=== PATIENT | female | born 1980 | race Asian ===

== ENCOUNTER 2017-10-13 06:15 | Inpatient (IN) | payer OTHER ==
[~2017-10-13 06:15] MED LIST: CITRIC ACID/SODIUM CITRATE 30 ML UNIT-DOSE CUP PO ONE; ELECTROLYTE-148 SOLN 500 ML IV ONE
[2017-10-13] MEDS ORDERED: ELECTROLYTE-148 SOLN 500 ML IV ONE (06:45)
[2017-10-13 07:19] VITALS: BMI 29.7
[2017-10-13] MEDS ORDERED: TUBERCULIN PPD 5 TU/0.1ML SYRINGE (IN PATIENT USE ONLY) ID ONE (08:00)
[2017-10-13] MEDS ORDERED: morphine SULFATE/Preservative Free 0.5 MG/ML (1cc Syringe) ONE (08:13)
[2017-10-13] MEDS ORDERED: PHENYLEPHRINE HCL 10 MG/1 ML SINGLE DOSE VIAL ONE (08:13)
[2017-10-13] MEDS ORDERED: BUPIVACAINE 0.75% IN DEXTROSE/PF 2ML AMPULE NR ONE (08:15)
[2017-10-13] MEDS ORDERED: CLINDAMYCIN PHOSPHATE 600 MG/4 ML VIAL ONE (08:39)
[2017-10-13] MEDS ORDERED: ACETAMINOPHEN 325 MG TABLET (FP) PO PRN (08:46)
[2017-10-13] MEDS ORDERED: IBUPROFEN 600 MG TABLET (FP) PO PRN ×2 (08:46→09:46)
[2017-10-13] MEDS ORDERED: ONDANSETRON 4 MG/2 ML VIAL IVPUSH PRN (08:46)
[2017-10-13] MEDS ORDERED: ePHEDrine SULFATE 50 MG/1 ML AMPULE ONE (09:17)
[2017-10-13 09:31] LABS: ARTERIAL BLOOD GAS PCO2 62.5 mmHg (35-45); ARTERIAL BLOOD GAS PO2 13.1 mmHg (80-100); ARTERIAL BLOOD GAS pH 7.27 (7.35-7.45)
[2017-10-13 09:32] LABS: ARTERIAL BLD GAS O2 SATURATION 14.9 % (90-98.9); ARTERIAL BLOOD GAS BASE EXCESS -0.9 meq/l (-2-2); VENOUS PH 7.32 (7.32-7.42)
[2017-10-13] MEDS ORDERED: OXYTOCIN 20 UNITS in 0.9% NS 20 UNIT/1,000 ML INFUS.BAG IV ONE (09:32)
[2017-10-13 09:33] LABS: VENOUS PC02 47.3 mmHg (38-52); VENOUS PO2 23.9 mmHg (28-48)
[2017-10-13] MEDS: OXYTOCIN 20 UNITS in 0.9% NS 20 UNIT/1,000 ML INFUS.BAG IV SCH (09:35)
[2017-10-13] MEDS ORDERED: SIMETHICONE 80 MG TAB.CHEW (FP) PO PRN (09:46)
[2017-10-13] MEDS ORDERED: IBUPROFEN 800 MG/8 ML IJ IVPB PRN (09:46)
[2017-10-13] MEDS ORDERED: SENNOSIDES/DOCUSATE COMBO (SENNA PLUS) TABLET (UD) PO PRN (09:46)
[2017-10-13] MEDS ORDERED: METHYLERGONOVINE MALEATE 0.2 MG/1 ML AMP IM PRN (09:46)
[2017-10-13] MEDS ORDERED: oxyCODONE HCL 5 MG TABLET PO PRN ×2 (09:46)
--- NOTE | 2017-10-13 09:58 | HP ---
Admitting History and Physical - Admission History of Present Illness: 37 yo @ 37 1/7 wks by first trimester ultrasound, EDC 11/07/2017 complicated by: 1. Placenta previa - noted at Anatomy scan, confirmed at 35 weeks. No bleeding or pain 2. Prepregnancy thrombocytopenia - platelet 10/11 at [facility] - 188 3. AMA - favorable cell free DNA 4. Anemia - s/p iron infusion, sees Dr. Rey Jacobsen 5. Varicella non-immune 6. Multiple fibroids, largest 6 cm at first trimester scan - no pain or complaints in Patient presents for scheduled primary delivery at 37 1/7 weeks, as per ACOG guidelines (recommended scheduled CD at 36 0/7 to 37 6/7 wks). She denies complaints. She reports movement, denies leakage of fluid or vaginal bleeding. She denies contractions. History Source: Patient Limitations to Obtaining History: No Limitations - Past Medical History Cardiovascular: No: HTN Pulmonary: No: Asthma Gastrointestinal: No: GERD ...: 1 ...Para: 0 Heme/Onc: Yes: Anemia, Thrombocytopenia - Past Surgical History Additional Past Surgical History: Ear surgery - Smoking History Smoking history: Never smoked Have you smoked in the past 12 months: No - Alcohol/Substance Use Hx Alcohol Use: No History of Substance Use: denies: None - Social History History of Recent Travel: No Home Medications - Allergies Allergies/Adverse Reactions: Allergies Allergy/AdvReac Type Severity Reaction Status Date / Time amoxicillin Allergy Intermediate Rash Verified 10/13/17 08:50 monosodium glutamate Allergy Intermediate Rash Verified 10/13/17 08:51 - Home Medications Home Medications: Ambulatory Orders Ferrous Sulfate [Feosol] 325 mg PO DAILY 10/13/17 Pnv No.103/Folic/Om3s/Fish Oil [ Gummies] 1 each PO DAILY 10/13/17 Family Disease History - Family Disease History Family History: Denies Review of Systems - Review of Systems Constitutional: reports: No Symptoms Neck: reports: No Symptoms Cardiovascular: reports: No Symptoms Gastrointestinal: reports: No Symptoms Genitourinary: reports: No Symptoms Musculoskeletal: reports: No Symptoms Integumentary: reports: No Symptoms Endocrine: reports: No Symptoms Hematology/Lymphatic: reports: No Symptoms Psychiatric: reports: No Symptoms 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ination Vital Signs: Vital Signs Temperature 98.2 F 10/13/17 06:15 Pulse Rate 82 10/13/17 06:15 Respiratory Rate 18 10/13/17 06:15 Blood Pressure 133/94 10/13/17 06:15 O2 Sat by Pulse Oximetry (%) Constitutional: Yes: Well Nourished, No Distress, Calm Neck: Yes: Supple Cardiovascular: Yes: Regular Rate and Rhythm Respiratory: Yes: Regular, CTA Bilaterally Gastrointestinal: Yes: Normal Bowel Sounds, Soft (gravid, nontender) ...Rectal Exam: Yes: WNL Musculoskeletal: Yes: WNL Extremities: Yes: WNL Edema: No Wound/Incision: Yes: Clean/Dry, Well Approximated, Unapproximated Neurological: Yes: Alert ...Motor Strength: WNL Psychiatric: Yes: Alert, Oriented Labs: PNL: AB positive, antibody negative; Varicella non-immune*; Rubella immune; Parvo immune; Hg Elise AA; elevated 1H GCT, normal GTT; HIV negative; HBS Ag negative; RPR NR; HCV neg; GBS neg Assessment/Plan 37 yo @ 37 1/7 wks, placenta previa for primary delivery 1. Admit to L&D 2. Consents reviewed and signed. Risks, benefits, alternatives and complications were discussed including but not limited to infection, bleeding requiring transfusion, damage to surrounding organs such as bowel and bladder, injury to . 3. Admission labs reviewed 4. Will proceed to OR
--- NOTE | 2017-10-13 10:36 | PN ---
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 Ramirez Findings: Normal tubes and ovaries bilaterally, female , LOT position, 9,9; wt 7 lbs, 19 inches Dictation: [id number]
[2017-10-13] MEDS: FERROUS SO4 325 MG TABLET (FP) PO SCH ×2 (11:17→22:00)
[2017-10-13] MEDS: PRENATAL VITAMINS W/ FOLIC ACID TABLET (FP) PO SCH (11:17)
--- NOTE | 2017-10-13 11:53 | OP ---
DATE OF OPERATION: 10/13/2017 ATTENDING PHYSICIAN RESPONSIBLE TO SIGN REPORT: Soniya Crouch MD PREOPERATIVE DIAGNOSIS: Intrauterine 37 weeks with placenta previa. POSTOPERATIVE DIAGNOSIS: Intrauterine 37 weeks with placenta previa. SURGERY: Primary section via Pfannenstiel skin incision. SURGEON: Soniya Crouch MD WATER CHASER: Mohamud Damian MD ANESTHESIA: Spinal. ANESTHESIOLOGIST: Justyn Pickett MD ESTIMATED BLOOD LOSS: 700 mL. FINDINGS: Female infant in LOT position; Apgars 9, 9; weight 7 pounds, 0 ounces , length 19 inches. INDICATIONS: Patient is a 37-year-old 1, para 0, at 37-1/7 weeks with placenta previa for scheduled primary delivery. She was counseled regarding risks, benefits, alternatives, and complications of procedure including infection, bleeding, damage to surrounding organs such as bowel, bladder, ureters, injury to . She expressed understanding and was brought to the operating room. DESCRIPTION OF PROCEDURE: When anesthesia was found to be adequate, patient was prepped and draped in a normal sterile fashion, placed in dorsal supine position with a leftward tilt. An approximately 11-cm skin incision was made with a knife and carried down to the underlying rectus fascia using the Bovie electrocautery. The fascia was midline, extended laterally using electrocautery. The inferior portion of the fascial incision was tented up using Robb clamps and dissected off the underlying rectus muscles using the Gutierrez scissors. Attention was brought to the superior portion, where in a similar fashion, it was tented up using Robb clamps, and dissected off the underlying rectus muscles using the Gutierrez scissors. The rectus muscles were in the midline and entered sharp, but the peritoneum was entered bluntly. The peritoneal incision was extended superiorly and inferiorly, and the vesicouterine peritoneum was identified, entered sharply, and the bladder flap was created digitally. Hysterotomy was performed and amniotomy was performed. Uterine incision was extended laterally using bandaged scissors. Infants head was brought to the hysterotomy site and was delivered followed by shoulders and body without difficulty. Cord was clamped and cut. Cord blood and cord gases were collected and sent. was handed to waiting NICU staff. The placenta was manually extracted. The uterus was cleared of all clot and debris. The uterus was closed using 0 Biosyn in a running layer, 2nd layer as an imbricating layer. The vesicouterine peritoneum was then reapproximated using 0 Biosyn running layer in a running fashion. The gutters were cleared of all clot and debris. Bilateral tubes and ovaries were examined and found to be normal appearing. The peritoneum was closed using 2-0 Biosyn in a running fashion. The rectus muscles were reapproximated using 0 Biosyn in an interrupted fashion. The fascia was closed using 0 Vicryl in a running fashion. The subcutaneous fat was closed using 2-0 chromic gut in a running fashion. The skin was closed subcutaneously using 2-0 Vicryl. Patient tolerated the procedure well. Estimated blood loss was 700 mL. Patient was brought to the recovery room in stable condition. SONIYA CROUCH M.D. [id number] MTDD
--- NOTE | 2017-10-14 08:38 | PN ---
Post Progress Note - Subjective Subjective: Patient without acute complaints. Reports tolerating oral intake without nausea or vomiting. Ambulating without dizziness. Denies fevers or chills. Pain well controlled with oral pain medication. without difficulty. Passing flatus. Post Day: 1 Type of Delivery: Primary C/S Vital Signs: Vital Signs Temperature 99.0 F 10/14/17 06:00 Pulse Rate 94 H 10/14/17 06:00 Respiratory Rate 20 10/14/17 08:00 Blood Pressure 124/71 10/14/17 06:00 O2 Sat by Pulse Oximetry (%) 100 10/13/17 10:35 Breast Exam: Yes: Soft Uterus: Yes: Fundus Firm, Fundus below umbilicus Incision: Yes: Dressing dry and intact Abdomen/GI: Yes: Abdomen soft, Tender (mild incisional), Tolerating PO. No: Abdominal Distention Lochia: Yes: Serosa Lochia, amount: Moderate Extremities: Yes: Calves non-tender. No: Edema Activity: Ambulating Assessment/Plan 37 yo POD # 1 s/p primary delivery 1. Continue routine postoperative care. 2. Follow up AM CBC 3. Rh positive status, no rhogam indicated. 4. Encourage ambulation and incentive spirometer use 5. Continue oral pain medication 6. Anticipate discharge home postoperative day #3 or #4
[2017-10-14 08:58] LABS: BASO % 0.5 % (0-2.0); EOS % 0.9 % (0-4.5); HEMATOCRIT 27.9 % (32.4-45.2); HEMOGLOBIN 8.9 GM/dL (10.7-15.3); LYMPH % 13.5 % (8-40); MCH 28.8 pg (25.7-33.7); MEAN PLT VOLUME 7.1 fl (7.5-11.1); NEUT % 80.1 % (42.8-82.8); PLATELET COUNT 117 K/MM3 (134-434); RDW 15.8 % (11.6-15.6); WHITE BLOOD COUNT 13.3 K/mm3 (4.0-10.0)
[2017-10-14] MEDS ORDERED: BISACODYL 10 MG SUPP.RECT RC PRN (09:46)
[2017-10-14] MEDS: FERROUS SO4 325 MG TABLET (FP) PO SCH ×2 (10:20→22:46)
[2017-10-14] MEDS: PRENATAL VITAMINS W/ FOLIC ACID TABLET (FP) PO SCH (10:20)
--- NOTE | 2017-10-14 13:13 | PN ---
Progress Note (short form) - Note Progress Note: Post op day#1.S/p C section under spinal anesthesia with duramorph uneventful.Patient stable and c/o some pain for which she is on medication.No any anesthesia related problem.Patient DC from the anesthesia care.
[2017-10-14] MEDS: OXYTOCIN 20 UNITS in 0.9% NS 20 UNIT/1,000 ML INFUS.BAG IV SCH (20:22)
--- NOTE | 2017-10-15 06:06 | PN ---
Progress Note (short form) - Note Progress Note: pod 2 s/p c/s. doing well, ambulate, CBC, BMP 10/14/17 08:00 Last Vital Signs Temp Pulse Resp BP Pulse Ox 98.2 F 88 18 130/86 100 10/14/17 22:00 10/14/17 22:00 10/14/17 22:00 10/14/17 22:00 10/13/17 10:35 abdomen soft , no distension, no cvs BS present incision dry, clean , intact NO calf tenderness noexcess vaginal bleeding impression pod 2 , doing well, passing gas plan ambulate, cbc in am, pain management
[2017-10-15 07:31] LABS: HEMOGLOBIN 8.7 GM/dL (10.7-15.3); MCH 29.1 pg (25.7-33.7); MCHC 32.1 g/dl (32.0-36.0); MEAN CELL VOLUME 90.5 fl (80-96); MEAN PLT VOLUME 7.4 fl (7.5-11.1); PLATELET COUNT 140 K/MM3 (134-434); RBC 2.98 M/mm3 (3.60-5.2); RDW 16.4 % (11.6-15.6); WHITE BLOOD COUNT 13.4 K/mm3 (4.0-10.0)
[2017-10-15] MEDS: PRENATAL VITAMINS W/ FOLIC ACID TABLET (FP) PO SCH (09:40)
[2017-10-15] MEDS: FERROUS SO4 325 MG TABLET (FP) PO SCH ×2 (09:40→21:45)
[2017-10-16 08:03] LABS: BASO % 0.3 % (0-2.0); EOS % 2.4 % (0-4.5); HEMATOCRIT 29.2 % (32.4-45.2); HEMOGLOBIN 9.4 GM/dL (10.7-15.3); LYMPH % 14.2 % (8-40); MCH 29.4 pg (25.7-33.7); MCHC 32.1 g/dl (32.0-36.0); MEAN CELL VOLUME 91.5 fl (80-96); MEAN PLT VOLUME 7.3 fl (7.5-11.1); MONO % 4.8 % (3.8-10.2); NEUT % 78.3 % (42.8-82.8); PLATELET COUNT 150 K/MM3 (134-434); RDW 16.1 % (11.6-15.6); WHITE BLOOD COUNT 13.1 K/mm3 (4.0-10.0)
--- NOTE | 2017-10-16 08:12 | PN ---
Post Progress Note - Subjective Subjective: Patient without acute complaints. Reports tolerating oral intake without nausea or vomiting. Ambulating without dizziness. Denies fevers or chills. Pain well controlled with oral pain medication. without difficulty. Passing flatus. Post Day: 3 Type of Delivery: Primary C/S Vital Signs: Vital Signs Temperature 99.0 F 10/15/17 22:00 Pulse Rate 88 10/15/17 22:00 Respiratory Rate 18 10/15/17 22:00 Blood Pressure 131/79 10/15/17 22:00 O2 Sat by Pulse Oximetry (%) 100 10/13/17 10:35 Breast Exam: Yes: Engorged Uterus: Yes: Fundus Firm, Fundus below umbilicus Incision: Yes: Sutures intact. No: Redness, Oozing Abdomen/GI: Yes: Abdomen soft, Passing flatus, Tolerating PO. No: Abdominal Distention, Tender Lochia: Yes: Serosa Lochia, amount: Small Extremities: Yes: Calves non-tender. No: Edema Activity: Ambulating - Labs Labs: CBC WBC 13.1 K/mm3 (4.0-10.0) H 10/16/17 07:11 RBC 3.20 M/mm3 (3.60-5.2) L 10/16/17 07:11 Hgb 9.4 GM/dL (10.7-15.3) L 10/16/17 07:11 Hct 29.2 % (32.4-45.2) L 10/16/17 07:11 MCV 91.5 fl (80-96) 10/16/17 07:11 MCH 29.4 pg (25.7-33.7) 10/16/17 07:11 MCHC 32.1 g/dl (32.0-36.0) 10/16/17 07:11 RDW 16.1 % (11.6-15.6) H 10/16/17 07:11 Plt Count 150 K/MM3 (134-434) 10/16/17 07:11 MPV 7.3 fl (7.5-11.1) L 10/16/17 07:11 Neutrophils % 78.3 % (42.8-82.8) 10/16/17 07:11 Lymphocytes % 14.2 % (8-40) 10/16/17 07:11 Monocytes % 4.8 % (3.8-10.2) 10/16/17 07:11 Eosinophils % 2.4 % (0-4.5) D 10/16/17 07:11 Basophils % 0.3 % (0-2.0) 10/16/17 07:11 Nucleated RBC % 0 % (0-0) 10/16/17 07:11 Assessment/Plan 37 yo POD # 3 s/p primary delivery 1. Patient stable for discharge home today. 2. Patient encouraged to contact MD for: - Severe pain not controlled by oral pain medication - Fevers or chills - Nausea or vomiting, intolerance of oral intake - Incision redness, tenderness or discharge 3. Patient to follow up in office in 1-2 weeks for incision check, 4-6 weeks for visit
--- NOTE | 2017-10-16 08:19 | DS ---
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 Vital Signs: Vital Signs Temperature 99.0 F 10/15/17 22:00 Pulse Rate 88 10/15/17 22:00 Respiratory Rate 18 10/15/17 22:00 Blood Pressure 131/79 10/15/17 22:00 O2 Sat by Pulse Oximetry (%) 100 10/13/17 10:35 Labs: CBC, BMP 10/16/17 07:11 Delivery - Delivery Type of Anesthesia: Spinal Episiotomy/Laceration: None EBL (cc): 700 Delivery, Single - Stages of Labor Date of Delivery: 10/13/17 Time of Delivery: 08:55 Time Placenta Delivered: 08:56 - Condition of Hair Stylist/Fourdrinier Wire Weaver Present: Yes Name: Newton Vargas Infant Gender: Female Weight: 7 lb Position: Left, OT Total Hours ROM (Hrs/Mins): 2 min - 1 Minute Total Score: 9 5 Minutes Total Score: 9 - [place] Feeding Plan Initial Plan: Exclusive throughout hospitalization Remarks - Remarks Remarks: Surgeon: Miguel; Assist: Rickie Anesthesia: Spinal, Dr. Ramirez Findings: Normal tubes and ovaries bilaterally, female infant, LOT position, 9,9; wt 7 lbs, 19 inches Dictation: [id number] Discharge Summary Reason For Visit: SCHEDULED Current Active Problems delivery delivered (Acute) Thrombocytopenia affecting (Acute) Procedures: Principal: delivery Hospital Course: Underwent CD HD #1 Improvement of PLT POD #1-3 Voiding, tolerating PO, passing gas, VSS, stable for DC home POD # 3 Condition: Good - Instructions Diet, Activity, Other Instructions: Physical activity Resume your normal everyday activity as tolerated no heavy lifting or exercise until seen by your surgeon. You may walk unlimited reed of and climb stairs. You may resume driving the car when you feel safe and comfortable behind the wheel. No sexual activity as instructed. Wound care If you have a bandage, leave it on, and keep dry for 48-72 hours. After that time discard the outer bandage. If they are tapes on the skin under the out of bandage leave them in place. They will peel off in the next 7 to 10 days. Do Not Peel them off. You may shower the day after surgery. If there are tapes present on the skin, you may shower over them. Diet There are no dietary restrictions. Eat healthy, high-fiber foods. Drink 6 to 8 glasses of liquid each day. This will assist in keeping your bowels are regular. Pain management You may take Tylenol or acetaminophen or Ibuprofen (for example, Motrin, Advil etc.) from my pain prescription medication is ordered should be taken as prescribed for moderate to severe pain. Call MD for any of the following: Severe pain not relieved by medication Fever of 101 or higher Excessive bleeding or drainage on dressing Inability to urinate Referrals: Elena Rivera MD [Staff Physician] - Disposition: HOME - Home Medications Comprehensive Discharge Medication List: Ambulatory Orders Ferrous Sulfate [Feosol] 325 mg PO DAILY 10/13/17 Pnv No.103/Folic/Om3s/Fish Oil [ Gummies] 1 each PO DAILY 10/13/17
[2017-10-16 08:25] VITALS: BP 130/90; PULSE 70; TEMP 98.5
[2017-10-16] MEDS: FERROUS SO4 325 MG TABLET (FP) PO SCH (09:26)
[2017-10-16] MEDS: PRENATAL VITAMINS W/ FOLIC ACID TABLET (FP) PO SCH (09:26)
--- NOTE | 2017-10-21 17:35 | PATH ---
Surgical Pathology Report Patient Name: TIFFANY BURGESS [facility]. Rec. 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 Electronically Signed Jacy Randolph M.D. Gross Description The specimen is received fresh labeled placenta and is a 392 gram, 16.0 x 14.0 x 2.8 cm. placenta with attached membranes and umbilical cord. The attached membranes are flowers, translucent with focal opacities and display focal circumarginate insertion. The umbilical cord measures 16 cm. in length and averages 1.1 cm. in diameter. The cord inserts eccentrically, 4.5 cm. to the nearest margin. No true knots or strictures are identified. Cut surface of the umbilical cord reveals 3 vessels. The surface is haynes blue with moderate fibrin deposition and appropriate caliber vessels. The maternal surface is red-brown with focal defects. Sectioning reveals red-brown, spongy parenchyma. No lesions are identified. Robotic Welding Operator sections are submitted in three cassettes as follows: 1- membrane rolls and umbilical cord; 2-3- full thickness sections of placenta. 10/20/2017 [facility]10/20/2017
== END 2017-10-16 13:00 | disposition home or self-care (01) | DRG 765 ==
LOC: JLDR 06:15 → J3W 11:30
PROVIDERS: ADMIT Obstetrics & Gynecology; ATTEND Obstetrics & Gynecology
PROC: 10D00Z1 Extraction of Products of Conception, Low, Open Approach (ICD-10-PCS; principal; 2017-10-13)
DX: O44.03 Complete placenta previa NOS or without hemorrhage, third trimester (principal); O99.12 Other diseases of the blood and blood-forming organs and certain disorders involving the immune mechanism complicating childbirth; D69.6 Thrombocytopenia, unspecified; O99.02 Anemia complicating childbirth; D64.9 Anemia, unspecified; O34.13 Maternal care for benign tumor of corpus uteri, third trimester; Z3A.37 37 weeks gestation of pregnancy; Z37.0 Single live birth
CPT/HCPCS: 36415; 36600; 82803; 85025; 85027; 88307-TC